=== PATIENT | female | born 1990 | race Caucasian/White ===

== ENCOUNTER 2016-05-19 07:36 | Emergency (ER) | payer SELFPAY ==
[~2016-05-19] VITALS: Ht 157.5 cm; Wt 58.0 kg
[2016-05-19 07:37] VITALS: BP 128/77; PULSE 88; RESP 20; TEMP 97.9; O2SAT 100
--- NOTE | 2016-05-19 07:53 | PD ---
HPI Chief Complaint: Allergic/Adverse Reaction Time Seen by Provider: 07:43 Travel History International Travel<30 days: No Contact w/Intl Traveler<30days: No History of Present Illness HPI Patient is a 25-year-old healthy female who presents the emergency department with possible allergic reaction. Patient is here on [place]. States that she has been using a new tanning oil and in the hot tub and afterwards she felt itchy, "on fire". Patient believes she may be having an allergic reaction. She notes slight postnasal drip, nasal congestion, sore throat and cough since traveling to [facility]. This is not particularly worsen. No throat swelling, shortness of breath, wheezing. No other new lotions, soaps, detergents, medications, etc. except listed above. [facility] Past Medical History Medical History: Denies Significant Hx Past Surgical History Surgical History: No Previous Surgery Social History Alcohol Use: Yes Tobacco Use: No Substance Use: No Allergies-Medications (Allergen,Severity, Reaction): Coded Allergies: Penicillin (Verified Allergy, Unknown, 05/19/16) Review of Systems Except as stated in HPI: all other systems reviewed are Neg Physical Exam Narrative GENERAL: Well-appearing female in no acute distress SKIN: Warm and dry. Mild erythema along the extremities and patchy erythema along the torso without excoriations. This is not raised. HEAD: Normocephalic. EYES:. No scleral icterus. No injection or drainage. ENT: No nasal bleeding or discharge. Mucous membranes pink and moist. Posterior pharynx clear without tonsillar erythema, exudate. No posterior pharyngeal swelling. NECK: Up without stridor CARDIOVASCULAR: Regular rate and rhythm. No murmur appreciated. RESPIRATORY: No accessory muscle use. Clear to auscultation. Breath sounds equal bilaterally. GASTROINTESTINAL: Abdomen soft, non-tender, nondistended. MUSCULOSKELETAL: Normal gait NEUROLOGICAL: Awake and alert. Motor grossly within normal limits. Normal speech. PSYCHIATRIC: Appropriate mood and affect; insight and judgment normal. Data Data Last Documented VS Vital Signs Date Time Temp Pulse Resp B/P Pulse Ox O2 Delivery O2 Flow Rate FiO2 05/19/16 07:37 97.9 88 20 128/77 100 Room Air MDM Medical Decision Making Medical Screen Exam Complete: Yes Emergency Medical Condition: Yes Medical Record Reviewed: Yes Differential Diagnosis 25-year-old female here for possible allergic reaction. Differential includes allergic reaction, viral syndrome. No evidence of anaphylaxis. Narrative Course Patient reassured, encouraged to use Benadryl [id number] for itching. Chloraseptic, Sudafed for nasal congestion/sore throat. Diagnosis Primary Impression: Allergic reaction Qualified Code: T78.40XA - Allergic reaction, initial encounter Additional Impression: Viral URI Referrals: Primary Care Physician as needed Patient Instructions: Cold Symptoms (ED), General Instructions, Urticaria (ED) Additional Instructions: Benadryl as needed for itching. Chloraseptic spray/lozenges as needed for sore throat. Sudafed as needed for nasal congestion. Med/Other Pt SpecificInfo: No Change to Meds Disposition: 01 DISCHARGE HOME Condition: Stable Elaina Griffith MD May 19, 2016 07:53
== END 2016-05-19 08:12 | disposition home or self-care (01) ==
LOC: NEPE 07:36
DX: T78.40XA Allergy, unspecified, initial encounter (principal); J06.9 Acute upper respiratory infection, unspecified; B34.9 Viral infection, unspecified; J02.9 Acute pharyngitis, unspecified; X58.XXXA Exposure to other specified factors, initial encounter
CPT/HCPCS: 99283